=== PATIENT | male | born 1995 | race Caucasian/White ===

== ENCOUNTER → 2024-09-17 15:26 | Outpatient (CLI) | payer OTHER, SELFPAY ==
--- NOTE | 2024-09-17 15:31 | DI.RAD.S_ITS ---
PROCEDURE: XR ANKLE RT 2V INDICATIONS: ANKLE PAIN TECHNIQUE: A total of 2 views of the ankle were acquired. COMPARISON: None. FINDINGS: Bones: No acute or subacute fractures or dislocations. Ankle mortise is normally aligned. No suspicious bony lesions. There appears to have been prior fracture fixation at the medial malleolus by a diagonally cephalad-oriented cortical screw. Syndesmosis repair also has been previously performed at 2 adjacent transverse paths crossing the distal tibia and fibula. Soft tissues: No tibiotalar joint effusion. Achilles tendon appears normal. IMPRESSION: Postsurgical changes from the past, showing evidence of prior medial malleolus ORIF and also repair of syndesmosis rupture at the distal tibia/fibula interspace. Dictated by: Gene Ellsworth M.D. on 09/17/2024 at 16:11 Approved by: Gene Ellsworth M.D. on 09/17/2024 at 16:14
== END ==
LOC: RAD 15:29
PROVIDERS: Referring Provider Chiropractor; Visit Provider Chiropractor
DX: M13.871 Other specified arthritis, right ankle and foot (principal); Z96.7 Presence of other bone and tendon implants; Z87.81 Personal history of (healed) traumatic fracture
CPT/HCPCS: 73600

== ENCOUNTER → 2024-10-21 | Outpatient (CLI) | payer OTHER, SELFPAY ==
--- NOTE | 2024-10-21 11:56 | DI.MRI.S_ITS ---
PROCEDURE: MR LUMBAR SPINE WO CON INDICATIONS: chronic lower back pain TECHNIQUE: Noncontrast sagittal T1 spin echo and T2 fast echo, sagittal STIR, and T2 fast spin echo through the lumbar spine. In cases with scoliosis, additional coronal T2 fast spin echo may be performed. COMPARISON: None. FINDINGS: Image quality: Excellent. Alignment and Curvature: Straightening of the normal lumbar lordosis. Bone Marrow: Marrow is of normal overall signal. No acute vertebral body compression fractures. Spinal Cord: Conus medullaris terminates at the L1-L2 level. Visualized cord demonstrates normal signal and size. Paraspinous Soft Tissues: No paravertebral masses. T12-L1: Normal appearance. L1-L2: Disc desiccation and mild posterior disc bulge. No central canal or neural foraminal stenosis. L2-L3: Normal appearance. L3-L4: Normal appearance. L4-L5: Normal appearance. L5-S1: Normal appearance. IMPRESSION: Mild degenerative disc disease at L1-L2. No significant central canal or neural foraminal stenosis. Dictated by: Donte Muñiz M.D. on 10/21/2024 at 14:13 Approved by: Donte Muñiz M.D. on 10/21/2024 at 14:15
== END ==
PROVIDERS: Referring Provider Student in an Organized Health Care Education/Training Program; Visit Provider Student in an Organized Health Care Education/Training Program
DX: M51.360 Other intervertebral disc degeneration, lumbar region with discogenic back pain only (principal); G89.29 Other chronic pain
CPT/HCPCS: 72148

== ENCOUNTER → 2024-11-22 13:09 | Outpatient (CLI) | payer OTHER, SELFPAY ==
--- NOTE | 2024-11-22 13:10 | DI.MRI.S_ITS ---
PROCEDURE: MR SHOULDER LT WO CON INDICATIONS: Pain in lt [place] TECHNIQUE: Noncontrast oblique coronal T2 fast spin echo with fat saturation, oblique sagittal T1 spin echo and T2 fast spin echo with fat saturation, axial T1 spin echo and T2 fast spin echo with fat saturation through the shoulder. COMPARISON: None. FINDINGS: Image quality: Excellent. Rotator cuff: The supraspinatus, and infraspinatus are unremarkable. The teres minor is unremarkable. The subscapularis is unremarkable. No muscle edema or fatty atrophy. Bones and bursae: No significant degenerative changes acromioclavicular joint. Type 1 acromion. No os acromial. No subacromial/subdeltoid bursitis. Marrow signal of the visualized proximal humerus, and the glenoid is unremarkable. No acute fracture. No focal chondral defect of the glenohumeral articulation. Capsule and soft tissues: Anterior superior labral tear. Posterior labral tear as well. 1.4 cm paralabral cyst about the anterior superior labrum. Additional 8 mm paralabral cyst about the posterior inferior labrum. The extra-articular biceps tendon is unremarkable. The intra-articular biceps tendon is unremarkable as well. Trace glenohumeral effusion. No intra-articular body. IMPRESSION: 1. Unremarkable rotator cuff tendons. 2. Labral tear with 2 paralabral cysts. Dictated by: Cecilia Raymundo M.D. on 11/22/2024 at 14:52 Approved by: Cecilia Raymundo M.D. on 11/22/2024 at 15:01
== END ==
LOC: MRI 13:10
PROVIDERS: Referring Provider Student in an Organized Health Care Education/Training Program; Visit Provider Student in an Organized Health Care Education/Training Program
DX: S43.432A Superior glenoid labrum lesion of left shoulder, initial encounter (principal); M25.512 Pain in left shoulder
CPT/HCPCS: 73221